=== PATIENT | female | born 2000 | race Caucasian/White ===

== ENCOUNTER 2018-08-31 17:02 | Emergency (ER) | payer OTHER ==
[2018-08-31 17:18] VITALS: BP 107/74
--- NOTE | 2018-08-31 17:51 | ED Physician Documentation ---
Female Urogenital Problems - HISTORIAN Historian: patient - HPI Stated Complaint: Vaginal Itching Chief Complaint: Female Urogenital Problems Onset: days ago Further Comments: yes (17 year old female patient presents with complaint of vaginal itching x 14 days and labia edema which started today. Patient reports using apple cider and cornstarch on vaginal area. Denies foul odor, denies unprotected sex.) - Associated Symptoms Urinary Symptoms: none Discharge: vaginal discharge (white with itching) - ROS CONST: none GI/: denies: nausea, vomiting CVS/RESP: none EYES/ENT: none NEURO/PSYCH: none MS/SKIN/LYMPH: none - PAST HX Past History: none Allergies/Adverse Reactions: Allergies Allergy/AdvReac Type Severity Reaction Status Date / Time No Known Allergies Allergy Verified 08/31/18 17:19 Home Medications: Ambulatory Orders Medication Instructions Recorded Fluconazole [Diflucan] 150 mg PO QD #2 tablet 08/31/18 Lisdexamfetamine Dimesylate 1 tab PO DAILY 08/31/18 [Vyvanse] - SOCIAL HX Smoking History: non-smoker - FAMILY HX Family History: denies: none - VITAL SIGNS Vital Signs: Vital Signs Temp Pulse Resp BP Pulse Ox 97.8 F 88 16 107/74 96 08/31/18 17:10 08/31/18 17:10 08/31/18 17:10 08/31/18 17:10 08/31/18 17:10 - REVIEWED ASSESSMENTS Nursing Assessment Reviewed: Yes Vitals Reviewed: Yes Progress - Progress Progress: Female : labial minor with edema; mild white discharge. Patient education on care and treatment of candidiasis. Verbalized understanding. Female Urogenital Problems - EXAM General Appearance: mild distress EENT: eye inspection normal, SO Respiratory: no resp. distress CVS: reg rate & rhythm Skin: color nml, no rash, warm,dry Extremities: non-tender, normal range of motion, no evidence of injury, no edema, J, [employer] Neuro: oriented X3 Discharge Clincal Impression: Vaginal candidiasis Prescriptions: Fluconazole [Diflucan] 150 mg PO QD #2 tablet Additional Instructions: Vaginal rest Do not use vinegar or cornstarch in the perineal or vaginal area Ice Cool air to perineum/vaginal area - 4-5 times a day for 20 minutes. You can use a fan or place the haircutter on cool. Use an over the counter Monostat - today. A prescription for diflucan has been sent to the pharmacy. Condition: Stable Disposition: 01 HOME, SELF-CARE Decision to Admit: NO Decision Time: 17:52
[2018-08-31 19:18] LABS: APPEARANCE,URINE CLEAR (CLEAR); COLOR,URINE YELLOW (YELLOW); OCCULT BLOOD,URINE TRACE-LYSED (NEGATIVE); PH URINE 6.5 (5.0 - 8.0)
[2018-08-31 19:19] LABS: UROBILINOGEN URINE 0.2 Eu (0.2-1.0)
== END 2018-08-31 17:55 | disposition home or self-care (01) ==
LOC: ED 17:02
DX: B37.3 Candidiasis of vulva and vagina (principal)
CPT/HCPCS: 81002; 99282; 99283